=== PATIENT | male | born 1950 | race Caucasian/White ===

== ENCOUNTER → 2017-11-05 | Outpatient (CLI) | payer OTHER, MEDICARE ==
[~2017-11-05] VITALS: Ht 175.3 cm; Wt 107.0 kg
[~2017-11-05] MED LIST: AMARYL4 MG PO; AMLODIPINE BESY10 MG PO; FISH OIL 1,001000 M2 PO; GLUCOPHAGE XR750 MG PO; HYDROCHLOROTHIA25 M2 PO; LOPRESSOR100 M1 PO; QUINAPRIL HCL40 MG PO; TURMERIC 500 M1 EACH PO; VITAMIN D2000 UNIT PO; VITAMINC500 PO
--- NOTE | ~2017-11-05 | P ---
[facility] [place] [address] PROCEDURE REPORT Name: VANGIE KENDALL Room #: REG [facility]#: [id number] Admission: 11/05/17 Attend Phys: Scott Wade MD Discharge: Date of : 50 Report #: [id number] THIS REPORT FOR: //name// CC: Scott Chavez MD BRIEF HISTORY: The patient is a 67-year-old male for high risk screening colonoscopy. Brother had colon cancer at age 58. Her also has a personal history of colon polyps. POSTOPERATIVE DIAGNOSIS: Diminutive polyp, hepatic flexure. MEDICATIONS: Deep sedation with propofol per anesthesia. SPECIMEN: Polyp, hepatic flexure. ESTIMATED BLOOD LOSS: 3 mL. PROCEDURE: Colonoscopy to cecum and terminal ileum with biopsy. FINDINGS: Prior to propofol sedation, procedure of colonoscopy discussed with the patient as well as potential risks and its complications. He indicates he understands and desires to proceed. DESCRIPTION OF PROCEDURE: With the patient in left lateral decubitus position, digital examination was completed which revealed no abnormalities. Subsequently, a [employer] video colonoscope was introduced in the rectum, advanced under direct vision to the cecum, done with minimal difficulty. Cecum was identified by the ileocecal valve and the appendiceal orifice. I was able to visualize the distal segment of terminal ileum, which was inspected and noted to be unremarkable. At that point, the scope was slowly withdrawn and careful circumferential views obtained including retroflexing the scope in the ascending colon. Upon slow withdrawal of the scope, there were some minor limitations of prep; however, with extensive irrigation and suctioning, we were able to obtain a good prep overall. The mucosa was within normal limits, normal vascular pattern, normal light reflex. As we withdrew the scope, no abnormalities were noted until the hepatic flexure was reached. At that level, a diminutive polyp was seen and removed by biopsy. The scope was further withdrawn and no additional polypoid lesions were seen. The remainder of the colon was normal. Scope was withdrawn in the rectum. ____ maybe 1 or 2 small internal hemorrhoids, but marked hemorrhoidal disease was not seen. Scope was withdrawn and the patient tolerated the procedure well. CONDITION OF THE PATIENT UPON DISCHARGE: Following procedure, the patient drowsy, aroused, conversant and will be discharged to home when fully ambulatory. [facility] [address] [place] [address] PROCEDURE REPORT Name: FAIZAVANGIE TED Room #: REG [facility].#: [id number] Admission: 11/05/17 Attend Phys: Scott Wade MD Discharge: Date of : 50 Report #: [id number] INSTRUCTIONS TO THE PATIENT AND FAMILY AT THE TIME OF DISCHARGE: We will follow up on the path. However, due to family history of polyps and finding of the polyp, we will have him return in 5 years for high risk screening colonoscopy. Last colonoscopy was 3 years ago. Withdrawal time from the cecum was 19 minutes 20 seconds. <ELECTRONICALLY SIGNED> By: Scott Wade MD 11/06/17 1331 1120 1728 Scott Wade MD /nt
--- NOTE | ~2017-11-05 | S ---
[facility] [place] [address] [place] [address] SURGICAL PATH RPT PROCEDURE Name: ADAM KENDALL Room #: REG [facility]..#: [id number] Admission: 11/05/17 Date of : 50 Discharge: Report #: [id number] Path Case #: [id number] PATHOLOGY REPORT COLLECTION DATE: 11/05/2017 RECEIVED DATE: 11/08/2017 SUBMITTING PHYS: Dr. Scott Wade OTHER PHYS: Dr. Sonia Cee SPECIMEN(S) RECEIVED: A.Polyp at hepatic flexure * * * * * * * * * * * * FINAL DIAGNOSIS: Polyp, at hepatic flexure, endoscopic biopsy: - Hyperplastic polyp and lymphoid aggregate. - Negative for dysplasia. (IUV:pit; 11/09/2017) PATHOLOGIST: Jennifer Carlos M.D. REPORT ELECTRONICALLY SIGNED BY: Jennifer Carlos M.D. DATE/TIME: 11/09/2017 17:21 * * * * * * * * * * * * GROSS PATHOLOGY: Received in formalin labeled "Von Adam Arreguin, polyp at hepatic flexure" and consists of 2 parry mucosal biopsies each averaging 0.3 cm. The specimen is totally submitted as A1. (BEA; 11/08/2017) CLINICAL HISTORY: History of colon polyps and family history of colon CA INITIAL CPT CODE(S): A; 91670 Professional services performed by [facility] at [facility] [address], [place] [address] Technical services performed by [facility] at [address] [place] [address]., [address], [place] [address]. [facility] [address] [place] [address] SURGICAL PATH RPT PROCEDURE Name: ADAM KENDALL Room #: REG [facility]#: [id number] Admission: 11/05/17 Date of : 50 Discharge: Report #: [id number] Path Case #: [id number] [place] [address] PHONE: [phone] DIRECTOR: Justen Cardenas M.D. * * * END OF REPORT * * *
== END | disposition home or self-care (01) ==
LOC: GI 08:36
DX: Z09 Encounter for follow-up examination after completed treatment for conditions other than malignant neoplasm (principal); K64.8 Other hemorrhoids; I10 Essential (primary) hypertension; E78.5 Hyperlipidemia, unspecified; E11.9 Type 2 diabetes mellitus without complications; Z98.890 Other specified postprocedural states
CPT/HCPCS: 62110; 62900